=== PATIENT | female | born 1935 | race Caucasian/White ===

== ENCOUNTER 2020-06-20 14:11 | Observation (INO) ==
[2020-06-21] MEDS ORDERED: MOM Conc 10 ML UD.LIQ PO PRN (09:56)
[2020-06-21] MEDS ORDERED: Naloxone 0.4 MG/ML INJ IVP PRN (09:56)
[2020-06-21] MEDS ORDERED: Mag Hydrox/Al Hydrox/Simeth 30 ML UDC PO PRN (09:56)
[2020-06-21] MEDS ORDERED: Ondansetron 4 MG/2 ML VIAL IVP PRN (09:56)
[2020-06-21] MEDS ORDERED: Acetaminophen 325 MG TABLET PO PRN (09:56)
[2020-06-21] MEDS ORDERED: *HR* Dextrose 50 % in Water (Vial) 50 ML VIAL IVP PRN (10:00)
[2020-06-21] MEDS ORDERED: D5% in Water 1,000 ML IVC PRN (10:00)
[2020-06-21] MEDS ORDERED: Dextrose Gel 15 GM/37.5 ML TUBE PO PRN ×2 (10:00)
[2020-06-21] MEDS: Aspirin Enteric Coated 81 MG Tablet PO SCH (11:15)
[2020-06-21] MEDS: lisinopriL 20 MG TABLET PO SCH (11:15)
[2020-06-21] MEDS: amLODIPine 5 MG TABLET PO SCH (11:15)
[2020-06-21] MEDS: FISH OIL 1000MG PO SCH ×2 (11:16→17:10)
[2020-06-21] MEDS: Dexamethasone 4 MG/ML VIAL IVP SCH (11:16)
[2020-06-21] MEDS: Loratadine 10 MG TABLET PO SCH (11:16)
[2020-06-21] MEDS: *HR* GlipiZIDE XL (24 HR) 10 MG TABLET PO SCH (11:16)
[2020-06-21] MEDS: Insulin LISPRO 300 UNITS/3 ML VIAL SUBQ SCH ×2 (11:33→17:13)
[2020-06-21] MEDS ORDERED: cefTRIAXone 2,000 MG in 0.9 % Sodium Chloride Mini Bag 100 ML IVPB SCH ×2 (15:00→16:15)
[2020-06-21] MEDS ORDERED: Azithromycin 500 MG in 0.9 % Sodium Chloride 250 ML IVPB SCH (16:00)
[2020-06-21] MEDS ORDERED: Insulin LISPRO 300 UNITS/3 ML VIAL SUBQ SCH (21:00)
[2020-06-22 07:22] LABS: Eosinophils % 0.3 %; Hematocrit 29.2 % (35.3-44.9); Hemoglobin 8.6 g/dL (11.5-15.4); Immature Granulocytes % 0.4 % (0-4); Lymphocytes # 1.2 K/mcL (0.6-4.6); Lymphocytes % 17.4 %; Mean Corpuscular HGB Conc 29.5 g/dL (31.6-35.5); Mean Corpuscular Hemoglobin 22.3 pg (28.0-33.3); Mean Corpuscular Volume 75.8 fL (83.0-100.0); Mean Platelet Volume 9.3 fL (9.4-12.4); Monocytes # 0.8 K/mcL (0.0-1.3); Monocytes % 11.4 %; Neutrophils # 4.8 K/mcL (1.6-8.9); Platelet Count 436 K/mcL (140-400); Red Blood Count 3.85 M/mcL (3.82-4.97); Red Cell Distribution Width 19.7 % (11.5-14.5); Segmented Neutrophils % 70.5 %; White Blood Count 6.8 K/mcL (4.3-11.1)
[2020-06-22 07:54] LABS: BUN/Creatinine Ratio 24 (6-26); Blood Urea Nitrogen 24 mg/dL (8-23); Calcium 8.6 mg/dL (8.6-10.3); Carbon Dioxide 28 mEq/L (23-29); Chloride 102 mEq/L (98-107); Glucose 114 mg/dL (70-105); Osmolality,Calculated 291 (280-300); Potassium 3.4 mEq/L (3.5-5.1); Sodium 138 mEq/L (136-145); eGFR For African Americans > 60 (> 60); eGFR For Non-African Americans 52 (> 60)
[2020-06-22] MEDS ORDERED: Furosemide 40 MG TABLET PO SCH (09:00)
[2020-06-22] MEDS: Dexamethasone 4 MG/ML VIAL IVP SCH (09:20)
[2020-06-22] MEDS: lisinopriL 20 MG TABLET PO SCH (09:21)
[2020-06-22] MEDS: Loratadine 10 MG TABLET PO SCH (09:22)
[2020-06-22] MEDS: *HR* GlipiZIDE XL (24 HR) 10 MG TABLET PO SCH (09:22)
[2020-06-22] MEDS: amLODIPine 5 MG TABLET PO SCH (09:22)
[2020-06-22] MEDS: Aspirin Enteric Coated 81 MG Tablet PO SCH (09:22)
[2020-06-22] MEDS: Insulin LISPRO 300 UNITS/3 ML VIAL SUBQ SCH (09:23)
[2020-06-22] MEDS: FISH OIL 1000MG PO SCH (09:23)
[2020-06-22 10:31] LABS: Ferritin 44 ng/mL (10-120)
[2020-06-22 10:41] LABS: C-Reactive Protein < 5 mg/L (Less than 10)
[2020-06-22 11:40] VITALS: BP 120/72
== END 2020-06-22 16:30 | disposition home health service (06) ==
LOC: INPPIK
PROVIDERS: ADMIT Family Medicine; ATTEND Family Medicine